=== PATIENT | female | born 1985 | race Caucasian/White ===

== ENCOUNTER 2016-11-28 14:11 | Emergency (ER) | payer OTHER ==
[~2016-11-28] VITALS: Ht 165.1 cm; Wt 65.3 kg
[~2016-11-28 14:11] MED LIST: AMOXICILLIN500 M1 PO; HEMOCYTE324 MG PO; IBUPROFEN800 MG PO; METHADONE10 MG PO; NAPROXEN; NAPROXEN500 MG PO; PEN-VEE K,VEET500 MG PO; PRENATAL TABLE1 EAC3 PO; TRAMADOL HCL50 MG PO; VALIUM5 MG PO; WELLBUTRIN75 MG PO
[2016-11-28 14:28] VITALS: BP 115/83
== END 2016-11-28 18:20 | disposition left against medical advice (07) ==
LOC: EME 14:11
DX: K08.89 Other specified disorders of teeth and supporting structures (principal); K03.81 Cracked tooth; Z53.21 Procedure and treatment not carried out due to patient leaving prior to being seen by health care provider